=== PATIENT | male | born 1950 | race Caucasian/White ===

== ENCOUNTER 2018-04-18 08:57 | Day surgery (SDC) | payer OTHER ==
[~2018-04-18 08:57] MED LIST: Lactated Ringers 1,000 ML IV SCH; Sodium Chloride 0.9% 10 ML Syringe FLUSH PRN; Sodium Chloride 0.9% 2.5 ML Syringe FLUSH PRN
[2018-04-18] MEDS ORDERED: fentaNYL 100 MCG/2 ML SDV ONE (09:48)
[2018-04-18] MEDS ORDERED: hydrALAZINE 20 MG/ML SDV IVPUSH ONE (09:48)
[2018-04-18] MEDS ORDERED: Midazolam 1 MG/ML 2 ML SDV ONE (09:48)
[2018-04-18] MEDS ORDERED: Propofol 200 MG/20 ML SDV ONE ×3 (09:49→10:54)
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
[2018-04-18] MEDS ORDERED: Phenylephrine/Normal Saline 100 MCG/ML 10 ML Syringe ONE (10:46)
[2018-04-18] MEDS ORDERED: ePHEDrine 50 MG/ML SDV ONE (11:03)
--- NOTE | 2018-04-18 11:18 | PCM.OPNOTE ---
- General Post-Op/Procedure Note Date of Surgery/Procedure: 04/18/18 Operative Procedure(s): Diagnostic colonoscopy Findings: 3 rectal polyps, 2 sigmoid colon polyps, descending colon polyp, diverticulosis , sigmoid colon inflamation Pre Op Diagnosis: Change in bowel habits Post-Op Diagnosis: 3 rectal polyps, 2 sigmoid colon polyps, 1 descending colon polyp, diverticulosis, mild inflamation of the sigmoid colon polyp Anesthesia Technique: MAC Primary Surgeon: Jessie Berkowitz Condition: Good
--- NOTE | 2018-04-18 12:25 | OR ---
SURGEON: YOLA COCHRAN MD DATE OF PROCEDURE: 04/18/2018 PREOPERATIVE DIAGNOSIS: Change in bowel habits. POSTOPERATIVE DIAGNOSES: 1. Diverticulosis. 2. Mild inflammation of the sigmoid colon. 3. Descending colon polyp x1. 4. Sigmoid colon polyp x2. 5. Rectal polyp x3. PROCEDURE PERFORMED: Diagnostic colonoscopy. ANESTHESIA: MAC. INSTRUMENT USED: Olympus colonoscope. EXTENT OF EXAM: To the cecum. PREPARATION: Good. LIMITATIONS: None. INDICATION FOR EXAMINATION: The patient is a 67-year-old male who presents with acute change in his bowel habits. We discussed the need for diagnostic colonoscopy. I explained the procedure, expected perioperative course, and risks including bleeding, infection, or damage to surrounding structures including perforation. The patient verbalized understanding and wishes to proceed. PROCEDURE IN DETAIL: The patient was brought into the endoscopy suite and placed in left lateral decubitus position. A time-out was completed verifying the patient's name, age, date of , allergies, and procedure to be performed. Monitored anesthesia care was induced and continuous oxygen was provided via nasal cannula throughout the procedure. After adequate sedation was achieved, a digital rectal exam was performed. This exam was within normal limits. A well lubricated colonoscope was inserted in the rectum and advanced under direct visualization to the level of cecum. The cecum was identified by both visual and anatomic landmarks. A photograph was taken of cecal cap; however, I was unable to retroflex the scope within the cecum due to looping of the scope more proximally. The scope was then fully withdrawn while examining the color, texture, anatomy, and integrity of the mucosa from the cecum to the anal canal. I was able to get very good look at the terminal ileum and this appeared normal. The patient did have diverticulosis throughout the sigmoid colon. The sigmoid colon wall appeared mildly injected, so both biopsies of this were taken and sent to pathology, labeled as sigmoid colon biopsies. The patient had several sessile polyps, one was in the descending colon at 45 cm, two were in the sigmoid colon, and three were in the rectum. These were all removed using a cold biopsy forceps. The last rectal polyp that I removed was visualized with retroflexion of the scope within the rectal vault. The anal canal opening appeared normal otherwise. A photograph was taken of this. The scope was then straightened out and fully withdrawn. The cecum to anus time was 21 minutes. The patient tolerated the procedure well and was transferred to the PACU in stable condition. ENDOSCOPIC DIAGNOSES: 1. Diverticulosis. 2. Mild inflammation of the sigmoid colon. 3. Descending colon polyp x1. 4. Sigmoid colon polyp x2. 5. Rectal polyp x3. RECOMMENDATIONS: Follow up in clinic in 2 weeks. DALTON SWEENEY /[id number]
== END 2018-04-18 12:20 | disposition home or self-care (01) ==
LOC: MW.SDS 08:57
PROVIDERS: ATTEND Surgery
DX: R19.4 Change in bowel habit (principal); D12.4 Benign neoplasm of descending colon; D12.5 Benign neoplasm of sigmoid colon; K63.5 Polyp of colon; K62.1 Rectal polyp; K57.30 Diverticulosis of large intestine without perforation or abscess without bleeding; K52.9 Noninfective gastroenteritis and colitis, unspecified; F17.210 Nicotine dependence, cigarettes, uncomplicated; Z79.82 Long term (current) use of aspirin; Z79.899 Other long term (current) drug therapy
CPT/HCPCS: 45380; 88305; J0360; J2250; J2370; J2704; J3010; J7120

== ENCOUNTER 2018-06-25 10:42 | Emergency (ER) | payer BC, OTHER ==
[2018-06-25] MEDS ORDERED: Sodium Chloride 0.9% 2.5 ML Syringe FLUSH PRN (10:54)
[2018-06-25] MEDS ORDERED: Sodium Chloride 0.9% 10 ML Syringe FLUSH PRN (10:54)
[2018-06-25] MEDS ORDERED: Labetalol 20 MG/4 ML Syringe IVPUSH ONE (11:00)
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
[2018-06-25] MEDS ORDERED: Silver Sulfadiazine 1% Crm 50 GM Tube TOP ONE (11:02)
[2018-06-25 11:29] LABS: CHLORIDE,CL 104 mmol/L (98-107); SODIUM,NA 137 mmol/L (136-148)
== END 2018-06-25 12:06 | disposition home or self-care (01) ==
LOC: MW.ED 10:42
DX: H66.91 Otitis media, unspecified, right ear (principal); T23.009A Burn of unspecified degree of unspecified hand, unspecified site, initial encounter; I10 Essential (primary) hypertension; F17.210 Nicotine dependence, cigarettes, uncomplicated
CPT/HCPCS: 16000; 36415; 80053; 84484; 85025; 93005; 96374; 99284; A9270; J3490